=== PATIENT | female | born 2000 | race Hispanic/Latino ===

== ENCOUNTER 2023-10-07 16:05 | Emergency (ER) | payer SELFPAY ==
[2023-10-07] MEDS ORDERED: Ketorolac Tromethamine 30 MG (1 mL) VIAL ONE ×2 (17:54→18:02)
[2023-10-07] MEDS ORDERED: HYDROcodone/Acetaminophen 5/325 mg Tablet ONE (17:54)
== END 2023-10-07 19:15 | disposition home or self-care (01) ==
LOC: CSHERS 16:05
DX: M25.461 Effusion, right knee (principal)
CPT/HCPCS: 96372; J1885